=== PATIENT | male | born 1950 | race Caucasian/White ===

== ENCOUNTER 2025-03-10 14:58 | Outpatient (AMB) | payer MEDICARE, MEDICAID, SELFPAY ==
[2025-03-13 08:00] VITALS: BP 132/78; PULSE 71; RESP 16; TEMP 36.6; O2SAT 98; BMI 25.4
--- NOTE | 2025-03-13 08:00 | A.OFFPC_ITS ---
Vital Signs 03/13/25 08:00 Height 6 ft 1 in Weight 192 lb 4 oz BMI 25.4 BP 132/78 Blood Pressure Location Lt brachial Position Sitting Respiration 16 Pulse 71 Pulse Source Pulse Oximeter Temp 97.8 F Temp Source Oral Pulse Oximetry (%) 98 Oxygen Delivery Method Room Air Intake Visit Reasons: Stroke Follow up Court Liaison Required: No Accompanied by: Self / Same As Patient Allergies No Known Allergies Allergy (Verified 03/13/25 08:03) Tobacco use date assessed: 03/13/25 Fall risk assessment: No Falls in past year Last assessed Fall Risk: 03/13/25 Dental Screening Dental Screen Date: 03/13/25 Did you have a dental visit in the last 12 months?: Yes Did you have a dental problem in the last 6 months where you did not have access to dental care?: No Was dental information given to patient?: Patient has dentist HPI HPI Comments History of Present Illness Details History of Present Illness The patient is a 75-year-old male presenting with memory loss. Memory loss: - The patient has been experiencing maryanne ry loss and has not yet seen a neurologist. - He was seen at the emergency room but records are unavailable. - There is a suggestion to perform cogni tive assessments such as the Mini-Cog or MoCA. Headaches: - The patient reports severe headaches, rated as 8 out of 10 in intensity, occurring daily for the past 10 days. - The headaches are located in the front al region and occur both in the morning and at night. History of stroke: - The patient has a history of four stro kes, with the most recent occurring approximately five to six weeks ago. - He was hospitalized for a month and wa s on blood thinners during his stay. Review of Systems - Neurological: Reports memory loss and severe headaches. Denies taking medication for headaches. 10-point ROS reviewed and negative excep t as noted in HPI Past Medical History - History of four strokes, with the most recent occurring five to six weeks ago. Health Maintenance Physical Exam General: Well-appearing, in no acute distress. Vital signs: Weight 192 pounds, Height 61 inches, BP 132/78, Oxygen saturation 98%, Temperature 97.8?F, Pulse 71 bpm. HEENT: Normocephalic, atraumatic. PERRLA, EOMI. Conjunctiva clear, sclera anicteric. Oropharynx clear, mucous membranes moist. TMs intact bilaterally. Neck: Supple, no lymphadenopathy, no thyromegaly, no JVD or carotid bruits. Cardiovascular: RRR, normal S1/S2, no murmurs, rubs, or gallops. Peripheral pulses 2+ and symmetric. No edema. Respiratory: Lungs clear to auscultation bilaterally, no wheezes, rales, or rhonchi. Normal effort. Abdomen: Soft, non-tender, non-distended. Normoactive bowel sounds. No hepatosplenomegaly, no masses. MSK: Full range of motion, no joint swelling or deformity. Normal gait. Skin: Warm, dry, intact. No rashes, lesions, or pallor. Neuro: Alert and oriented x3. Cranial nerves II-XII intact. Strength 5/5 throughout. Sensation intact. Reflexes 2+ symmetric. Normal coordination and gait. Psych: Appropriate mood and affect. Normal judgment and insight. Memory loss noted, with recent headaches reported as severe, rated 8/10 in intensity, occurring in the morning and night. Plan 1. Memory Loss - Plan to conduct cognitive assessments such as the Mini-Cog or MoCA to evaluate memory function. 2. Headaches - Consider trialing medication for heada evelina relief as the patient has not taken any medication yet. 3. History Of Stroke - Review previous hospital records to un derstand the stroke history and management. Discussion Notes I discussed with the patient the importance of conducting cognitive assessments to evaluate his memory loss. We also talked about the need to review his previous hospital records to better understand his stroke history and management. Additionally, I suggested considering medication for headache relief, as he has not taken any yet. Patient was informed and verbally consented to the use of an ambient scribe for clinic note documentation during this visit. Patient Instructions - Follow up with cognitive assessments a s recommended. - Consider taking medication for headach e relief as discussed. - Ensure all previous hospital records a re reviewed for a comprehensive understanding of your stroke history. Total time spent caring for the patient today was 30 minutes. This includes time spent before the visit reviewing the chart, time spent documenting, and time spent reviewing medications, performing a medically ?necessary evaluation, counseling on diagnoses, care coordination, ordering appropriate tests, ordering appropriate medications. [facility] Family History (Updated 03/13/25 @ 08:07 by Beth Gaines MA) Father No problems noted. Mother No problems noted. Social History (Updated 03/13/25 @ 08:08 by Beth Gaines MA) Housing: Apartment Alcohol intake: current Alcohol intake frequency: does not drink Patient Tobacco Use Status: Current everyday Tobacco user service: No Current occupational status: employed Cognitive needs: No Hearing needs: No Vision needs: No Questionnaire PHQ-9 Over the last 2 weeks, how often have you been bothered by any of the following problems? 1. Little interest or pleasure in doing things: several days 2. Feeling down, depressed, or hopeless: several days 3. Trouble falling or staying asleep, or sleeping too much: not at all 4. Feeling tired or having little energy: several days 5. Poor appetite or overeating: not at all 6. Feeling bad about yourself - or that you are a failure or have let yourself or your family down: not at all 7. Trouble concentrating on things, such as reading the newspaper or watching television: nearly every day 8. Moving or speaking so slowly that other people could have noticed. Or the opposite - being so fidgety or restless that you have been moving around a lot more than usual: nearly every day 9. Thoughts that you would be better off or of hurting yourself in some way: not at all Total score: 9 Source: Developed by Drs. Kameron Olivera, Kimberli Mejia, Lex Thomas and colleagues, with an educational beau from [employer]. Thrive Questionnaire Date Thrive assessed: 03/03/25 I am a: Parent/Caregiver What is your living situation today?: I have a steady place to live Within the past 12 months, did the food you bought not last and you didn't have the money to get more?: Never true Within the past 12 months, did you worry whether your food would run out before you got money to buy more?: Often true Do you have trouble paying for medicines?: No Do you have trouble getting transportation to medical appointments?: No Do you have trouble paying your heating and electricity bill?: Yes Do you have trouble taking care of your child, family member or friend?: No Do you have trouble with day-to-day activities such as bathing, preparing meals, shopping, managing finances, etc.?: Yes Are you currently unemployed and looking for a job?: No Are you interested in more education?: No Please select the resources that you would like help with: None Currently or been in a relationship where the following occur: No concerns reported THRIVE Score: 2 AUDIT C Alcohol Use Questionnaire (AUDIT-C) 1. How often do you have a drink containing alcohol?: Never Total Score: 0 WILFREDO-7 AMB Questionnaire WILFREDO-7 Date WILFREDO - 7 assessed: 03/13/25 Feeling nervous, anxious, or on edge: 3 = Nearly every day Not being able to stop or control worryin = Nearly every day Worrying too much about different things: 0 = Not at all Trouble relaxin = Nearly every day Being so restless that it is hard to sit still: 1 = Several days Becoming easily annoyed or irritable: 1 = Several days Feeling afraid as if something awful might happen: 3 = Nearly every day Total WILFREDO-7 score (0-4 normal; 5-9 mild; 10-14 moderate; 15-21 severe): 14 Source: Developed by Drs. Kameron Olivera, Kimberli Mejia, Lex Thomas and colleagues, with an educational beau from [employer]. Physical exam (Primary Care) Vital Signs: Last Vital Signs Temp 97.8 F 03/13/25 08:00 Pulse 71 03/13/25 08:00 Resp 16 03/13/25 08:00 BP 132/78 03/13/25 08:00 Pulse Ox 98 03/13/25 08:00 Oxygen Delivery Method Room Air 03/13/25 08:00 BMI result Body Mass Index 25.4 Tobacco/Smoking Status: Tobacco use Status Tobacco use date assessed 03/13/25 03/13/25 08:09 Patient Tobacco Use Status Current everyday Tobacco 03/13/25 08:09 PHQ-9: PHQ-9 Score PHQ-9: Total score 9 03/13/25 08:09 Thrive Assessment: Date of Thrive Assessment Date Thrive assessed 03/03/25 03/13/25 08:09 Currently or been in a relationship where the following occur: No concerns reported Coding Level of Care Code New Pt Level 4 (77431) Diagnoses Chronic nonintractable headache, unspecified headache type R51.9; G89.29 Headache type: unspecified Intractability: not intractable Memory loss due to medical condition R41.3 History of stroke Z86.73 Elevated blood pressure reading R03.0 Assessment & Plan Assessment & Plan (1) Chronic headache: Code(s): R51.9 - Headache, unspecified; G89.29 - Other chronic pain Qualifiers: Headache type: unspecified Intractability: not intractable Qualified Code(s): R51.9 - Headache, unspecified; G89.29 - Other chronic pain (2) Memory loss due to medical condition: Code(s): R41.3 - Other amnesia (3) History of stroke: Code(s): Z86.73 - Personal history of transient ischemic attack (TIA), and cerebral infarction without residual deficits (4) Elevated blood pressure reading: Code(s): R03.0 - Elevated blood-pressure reading, without diagnosis of hypertension Plan Medications: New atorvastatin 80 mg PO DAILY 90 tabs 0RF olanzapine 5 mg PO BEDTIME 90 tabs 0RF aspirin 81 mg PO DAILY 90 tabs 0RF
== END 2025-03-10 15:36 | disposition home or self-care (01) ==
PROVIDERS: PCP Student in an Organized Health Care Education/Training Program; Visit Provider Student in an Organized Health Care Education/Training Program
DX: R51.9 Headache, unspecified (principal); G89.29 Other chronic pain; R41.3 Other amnesia; Z86.73 Personal history of transient ischemic attack (TIA), and cerebral infarction without residual deficits; R03.0 Elevated blood-pressure reading, without diagnosis of hypertension

== ENCOUNTER → 2025-03-10 14:58 | Outpatient (BNVA) | payer MEDICARE, MEDICAID, SELFPAY | PROVIDERS: PCP Student in an Organized Health Care Education/Training Program; Visit Provider Student in an Organized Health Care Education/Training Program | DX: R41.3 Other amnesia (principal); R51.9 Headache, unspecified; G89.29 Other chronic pain; R03.0 Elevated blood-pressure reading, without diagnosis of hypertension; Z86.73 Personal history of transient ischemic attack (TIA), and cerebral infarction without residual deficits | CPT/HCPCS: 99202 ==

== ENCOUNTER 2025-03-21 13:31 | Outpatient (REF) | payer MEDICARE, MEDICAID, SELFPAY ==
[2025-03-21 18:11] LABS: MANUAL DIFF FLAG NO
[2025-03-21 18:28] LABS: Appearance Urine Clear; Glucose Urine UA Negative (Negative); PH 5.5 (5.0-9.0); Specific Gravity - Urine 1.015 (1.005-1.025); UMIC TRIGGER UACC YES
[2025-03-21 18:34] LABS: UACC Culture Trigger YES
[2025-03-21 18:43] LABS: Alanine Aminotransferase 27 U/L (0-40); Albumin Level 3.9 g/dL (3.5-5.0); Alkaline Phosphatase 101 U/L (39-117); Anion Gap 13 (12-20); Aspartate Amino Transferase 30 U/L (5-37); Blood Urea Nitrogen 21 mg/dL (9-16); Calcium 9.8 mg/dL (8.4-10.2); Carbon Dioxide 26 mmol/L (22-29); Chloride 109 mmol/L (96-108); Cholesterol 178 mg/dL (<200); Estimated Glomerular Filt Rate 54; HDL Cholesterol 51 mg/dL (>40); Magnesium 2.2 mg/dL (1.6-2.6); Potassium 4.4 mmol/L (3.3-5.1); Sodium 144 mmol/L (135-145); Total Protein 7.2 g/dL (6.5-8.0); Triglycerides 91 mg/dL (<150)
[2025-03-21 19:05] LABS: Folate 8.8 ng/mL (> or = 4.0); Vitamin B12 537 pg/mL (200-900)
[2025-03-21 20:13] LABS: Hematocrit 43.3 % (42.0-52.0); Hemoglobin 14.5 g/dl (14.0-18.0); Imm Gran Abs Auto 0.02 X10*3/uL (0.00-0.03); Imm Gran Pct Auto 0.3 % (0.0-0.4); Lymphocytes Absolute Auto 2.7 X10*3/uL (1.2-4.9); Mean Corpuscular HGB Conc 33.5 g/dl (31.0-36.0); Mean Corpuscular Hemoglobin 32.3 pg (27.0-33.0); Mean Corpuscular Volume 96.4 fL (80.0-98.0); NRBC Abs Auto 0.000 X10*3/uL (0.0-0.012); NRBC Pct Auto 0.0 /100WBC (0.0-0.2); Platelet Count 179 X10*3/uL (160-400); Red Blood Count 4.49 X10*6/uL (4.60-5.80); White Blood Count 7.4 X10*3/uL (4.8-10.8)
[2025-03-22 03:12] LABS: Syphilis Screen Nonreactive (Nonreactive)
[2025-03-22 03:28] LABS: HBS Num1 1.89 mIU/mL (0-7.99); HBsAGNum1 0.40 S/CO (0.00-0.99); HIV Num 1 0.05 S/CO (0.00-0.99); Hepatitis B Surface Antigen Negative (Negative); ~HepC Num1 0.17 S/CO (0.00-0.79); ~Hepatitis B Surface Antibody NONREACTIVE (Nonreactive); ~Hepatitis C Antibody Nonreactive (Nonreactive)
[2025-03-25 15:29] LABS: VITAMIN D (1,25 OH) D3 16 pg/mL; Vit D (1,25-Dihydroxy) Total 27 pg/mL (18-72); Vitamin D (1,25 OH) D2 11 pg/mL
== END 2025-03-21 13:32 | disposition home or self-care (01) ==
LOC: HO.HKASLDS 13:31
PROVIDERS: PCP Student in an Organized Health Care Education/Training Program; Visit Provider Student in an Organized Health Care Education/Training Program
DX: Z11.4 Encounter for screening for human immunodeficiency virus [HIV] (principal); Z13.1 Encounter for screening for diabetes mellitus; Z13.6 Encounter for screening for cardiovascular disorders; Z13.21 Encounter for screening for nutritional disorder; Z13.29 Encounter for screening for other suspected endocrine disorder
CPT/HCPCS: 36415; 80053; 80061; 81001; 82607; 82652; 82746; 83036; 83735; 84443; 85025; 86706; 86780; 86803; 87086; 87340; 87389

== ENCOUNTER 2025-03-24 14:06 | Outpatient (AMB) | payer MEDICARE, MEDICAID, SELFPAY ==
--- NOTE | 2025-03-24 14:14 | A.OFFPC_ITS ---
Vital Signs 03/24/25 14:15 Height 6 ft 1 in Weight 197 lb BMI 26.0 BP 152/86 H Blood Pressure Location Lt brachial Position Sitting Respiration 16 Pulse 58 Pulse Source Pulse Oximeter Pulse Oximetry (%) 99 Oxygen Delivery Method Room Air Intake Visit Reasons: 2 wk f/u Motor Operator Required: No Accompanied by: Self / Same As Patient Allergies No Known Allergies Allergy (Verified 03/24/25 14:16) Tobacco use date assessed: 03/24/25 Fall risk assessment: No Falls in past year Last assessed Fall Risk: 03/13/25 Dental Screening Dental Screen Date: 03/24/25 Did you have a dental visit in the last 12 months?: Yes Did you have a dental problem in the last 6 months where you did not have access to dental care?: No Was dental information given to patient?: Patient has dentist HPI HPI Comments History of Present Illness Details Consent Patient was informed and verbally consented to the use of an ambient scribe for clinic note documentation during this visit. History of Present Illness The patient is a 75-year-old male presenting with memory loss and severe headaches. Memory Loss: Two months post-stroke, the patient experiences memory loss contributing to daily functional impairment. The initial stroke necessitated a month-long hospitalization and rehabilitation due to the cognitive decline. Imaging has illustrated underlying chronic small vessel ischemic changes and brain atrophy, linked to both acute and chronic stroke events, impairing the patient's memory faculties. Recurrent Headaches: The patient reports severe headaches, particularly of frontal origin, presenting daily over the last ten days, rating an 8/10 in severity. Previous imaging and records have linked these neurological symptoms potentially to post-stroke sequelae. The presence of daily debilitating headaches necessitates further evaluation. Surgical History: - No prior surgeries reported. Medications: - Aspirin 81 mg daily (Preventive for ca rdiovascular events) - Atorvastatin 80 mg daily (Hyperlipidem ia management) - Cyanocobalamin (Vitamin B12 supplement ation) - Gabapentin, taken as needed for pain r elief. Social History: - Consistent history of tobacco use. - Documented history of cocaine use diso rder. - Lives with family; previously noted ho melessness. Family History: - No significant family medical history was discussed. Diagnostic Results: - Labs: Positive urine toxicology for co jorge a. - Imaging: CT scans showing chronic smal l vessel ischemic changes and age- related brain atrophy; MRI revealing acute and chronic infarcts in various brain regions. Review of Systems - Neurological: Reports memory loss and headaches rated 8/10 in severity, occurring daily. 10-point ROS reviewed and negative excep t as noted in HPI Past Medical History - Stroke (most recent two months ago) - Cocaine use disorder - Chronic Obstructive Pulmonary Disease (COPD) - Depression - Anxiety - Chronic renal insufficiency - Vitamin B12 deficiency - Vitamin D deficiency - Suicidal ideations - Altered mental status - Small vessel ischemic changes - Age-related brain atrophy - Attention Deficit Hyperactivity Disord er (ADHD) Health Maintenance - Emphasize the cessation of tobacco and cocaine use. - Continue monitoring and managing B12 a nd vitamin D intake. Physical Exam General: Well-appearing, in no acute distress. Vital signs: Within normal limits. HEENT: Normocephalic, atraumatic. PERRLA, EOMI. Conjunctiva clear, sclera anicteric. Oropharynx clear, mucous membranes moist. TMs intact bilaterally. Neck: Supple, no lymphadenopathy, no thyromegaly, no JVD or carotid bruits. Cardiovascular: RRR, normal S1/S2, no murmurs, rubs, or gallops. Peripheral pulses 2+ and symmetric. No edema. Respiratory: Lungs clear to auscultation bilaterally, no wheezes, rales, or rhonchi. Normal effort. Abdomen: Soft, non-tender, non-distended. Normoactive bowel sounds. No hepatosplenomegaly, no masses. MSK: Full range of motion, no joint swelling or deformity. Normal gait. Skin: Warm, dry, intact. No rashes, lesions, or pallor. Neuro: Alert and oriented x3. Cranial nerves II-XII intact. Strength 5/5 throughout. Sensation intact. Reflexes 2+ symmetric. Normal coordination and gait. Psych: Appropriate mood and affect. Normal judgment and insight. 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 The patient also experiences memory issues and debilitating headaches, likely related to acute and chronic strokes, chronic ischemic changes, and brain atrophy. Plan 1. Memory Loss - Refer to neurology for comprehensive e valuation. - Continue with current medication manag ement. - Schedule MRI of the head to evaluate f or any acute changes. 2. Cocaine Use Disorder - Psychiatric consultation recommended f or management of substance use disorder. - Encourage participation in addiction t reatment programs. 3. Depression - Recommend psychiatric evaluation to ad dress depressive symptoms. - Consider adjustment of medication missy men upon psychiatric input. Discussion Notes I reviewed with the patient and family the implications of recent neurological symptoms, reiterating the necessity for a neurology referral to help delineate the cause of memory loss and assess any additional stroke sequelae through imaging studies. We stressed the importance of addressing both the substance use disorder and depression through psychiatric interventions, detailing outpatient support and medication management as viable options to ensure comprehensive care of his mental health. Patient Instructions - Follow up with neurology for a memory loss evaluation. - Schedule a psychiatric consultation fo r substance use and depression management. - Monitor daily headaches; seek care if symptoms worsen or change. Medical Decision Making Given the complexity of the patient?s presentation, memory loss is suspected to primarily stem from prior stroke-related injury corroborated by histories of ischemic insults and neuroimaging findings. Neurological referral is prioritized for targeted management of cognitive symptoms. The substance use disorder coupled with mood symptoms significantly complicates the clinical picture, necessitating coordinated psychiatric interventions. We considered potential neurological causes for his headaches and the chronicity of underlying ischemic disease; the focused treatment at present is the strategic use of medication while planning for neurology and psychiatry referrals to allow for comprehensive management. Total time spent caring for the patient today was 30 minutes. This includes time spent before the visit reviewing the chart, time spent documenting, and time spent reviewing laboratory results, diagnostic imaging, medications, performing a medically necessary evaluation, counseling on diagnoses, care coordination, ordering appropriate tests, ordering appropriate medications, review of tests performed by other providers, reporting test results with the patient. [facility] Medical History (Updated 03/24/25 @ 14:21 by Reji Kwan MD) Depression Cocaine use disorder Alcoholism in remission Shortness of breath Obstructive sleep apnea Insomnia ADHD (attention deficit hyperactivity disorder) Acute depression COPD (chronic obstructive pulmonary disease) Anxiety Seizures Family History Father No problems noted. Mother No problems noted. Social History Housing: Apartment Alcohol intake: current Alcohol intake frequency: does not drink Patient Tobacco Use Status: Current everyday Tobacco user service: No Current occupational status: employed Cognitive needs: No Hearing needs: No Vision needs: No Questionnaire Thrive Questionnaire Date Thrive assessed: 03/24/25 I am a: Parent/Caregiver What is your living situation today?: I have a steady place to live Within the past 12 months, did the food you bought not last and you didn't have the money to get more?: Never true Within the past 12 months, did you worry whether your food would run out before you got money to buy more?: Often true Do you have trouble paying for medicines?: No Do you have trouble getting transportation to medical appointments?: No Do you have trouble paying your heating and electricity bill?: Yes Do you have trouble taking care of your child, family member or friend?: No Do you have trouble with day-to-day activities such as bathing, preparing meals, shopping, managing finances, etc.?: Yes Are you currently unemployed and looking for a job?: No Are you interested in more education?: No Please select the resources that you would like help with: None Currently or been in a relationship where the following occur: No concerns reported THRIVE Score: 2 AUDIT C Alcohol Use Questionnaire (AUDIT-C) 1. How often do you have a drink containing alcohol?: Never 3. How often do you have six or more drinks on one occasion?: Never Total Score: 0 WILFREDO-7 AMB Questionnaire WILFREDO-7 Date WILFREDO - 7 assessed: 03/24/25 Source: Developed by Drs. Kameron Olivera, Kimberli Mejia, Lex Thomas and colleagues, with an educational beau from [employer]. Physical exam (Primary Care) Vital Signs: Last Vital Signs Pulse 58 03/24/25 14:15 Resp 16 03/24/25 14:15 BP 152/86 H 03/24/25 14:15 Pulse Ox 99 03/24/25 14:15 Oxygen Delivery Method Room Air 03/24/25 14:15 BMI result Body Mass Index 26.0 Tobacco/Smoking Status: Tobacco use Status Tobacco use date assessed 03/24/25 03/24/25 14:18 Patient Tobacco Use Status Current everyday Tobacco 03/24/25 14:18 Thrive Assessment: Date of Thrive Assessment Date Thrive assessed 03/24/25 03/24/25 14:18 Currently or been in a relationship where the following occur: No concerns reported Coding Level of Care Code Est Pt Level 4 (45404) Diagnoses Cocaine use disorder F14.10 Depression F32.A Seizures R56.9 ADHD F90.9 History of ischemic stroke Z86.73 COPD (chronic obstructive pulmonary disease) J44.9 Chronic renal insufficiency N28.9 Vitamin B12 deficiency E53.8 Vitamin D2 deficiency E55.9 Headache R51.9 History of homeless Z78.9 Assessment & Plan Assessment & Plan (1) Cocaine use disorder: Code(s): F14.10 - Cocaine abuse, uncomplicated Category: Medical (2) Depression: Code(s): F32.A - Depression, unspecified Category: Medical (3) Seizures: Code(s): R56.9 - Unspecified convulsions Category: Medical (4) ADHD: Code(s): F90.9 - Attention-deficit hyperactivity disorder, unspecified type (5) History of ischemic stroke: Code(s): Z86.73 - Personal history of transient ischemic attack (TIA), and cerebral infarction without residual deficits (6) COPD (chronic obstructive pulmonary disease): Code(s): J44.9 - Chronic obstructive pulmonary disease, unspecified (7) Chronic renal insufficiency: Code(s): N28.9 - Disorder of kidney and ureter, unspecified (8) Vitamin B12 deficiency: Code(s): E53.8 - Deficiency of other specified B group vitamins (9) Vitamin D2 deficiency: Code(s): E55.9 - Vitamin D deficiency, unspecified (10) Headache: Code(s): R51.9 - Headache, unspecified (11) History of homeless: Code(s): Z78.9 - Other specified health status Plan
[2025-03-24 14:15] VITALS: BP 152/86; PULSE 58; RESP 16; O2SAT 99; BMI 26.0
== END 2025-03-24 15:07 | disposition home or self-care (01) ==
LOC: HO.HMCFMS 14:06
PROVIDERS: PCP Student in an Organized Health Care Education/Training Program; Visit Provider Student in an Organized Health Care Education/Training Program
DX: F14.10 Cocaine abuse, uncomplicated (principal); F32.A Depression, unspecified; R56.9 Unspecified convulsions; F90.9 Attention-deficit hyperactivity disorder, unspecified type; Z86.73 Personal history of transient ischemic attack (TIA), and cerebral infarction without residual deficits; J44.9 Chronic obstructive pulmonary disease, unspecified; N28.9 Disorder of kidney and ureter, unspecified; E53.8 Deficiency of other specified B group vitamins; E55.9 Vitamin D deficiency, unspecified; R51.9 Headache, unspecified; Z78.9 Other specified health status

== ENCOUNTER → 2025-03-24 14:06 | Outpatient (BNVA) | payer MEDICARE, OTHER, SELFPAY | PROVIDERS: PCP Student in an Organized Health Care Education/Training Program; Visit Provider Student in an Organized Health Care Education/Training Program | DX: F14.10 Cocaine abuse, uncomplicated (principal); F32.A Depression, unspecified; R56.9 Unspecified convulsions; F90.9 Attention-deficit hyperactivity disorder, unspecified type; J44.9 Chronic obstructive pulmonary disease, unspecified; N28.9 Disorder of kidney and ureter, unspecified; E53.8 Deficiency of other specified B group vitamins; E55.9 Vitamin D deficiency, unspecified; R51.9 Headache, unspecified; Z86.73 Personal history of transient ischemic attack (TIA), and cerebral infarction without residual deficits; Z78.9 Other specified health status; Z79.82 Long term (current) use of aspirin; Z79.899 Other long term (current) drug therapy | CPT/HCPCS: 99212 ==

== ENCOUNTER 2025-04-12 12:46 | Outpatient (AMB) | payer MEDICARE, MEDICAID, SELFPAY ==
[2025-04-12 13:04] VITALS: BP 116/70; PULSE 60; O2SAT 97; BMI 26.4
--- NOTE | 2025-04-12 13:04 | A.OFFVIS_ITS ---
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 He was hospitalized for approximately 1 month and was placed on blood thinners during his stay. He also has a history of COPD, depression, cocaine use in the past, hyperlipidemia, elevated blood pressures, and seizures. He presents to the clinic today for a headache evaluation though it is mentioned in primary care office notes that he has been awaiting neurology evaluation for memory loss. He tells me that he began having headaches about 2 months ago. He was never someone to have headache prior to this. He reports that his headaches have been severe and they occur most often during the night but can arise during the day but generally last for the greater part of a day. He does have breaks from his headahces but they are more often there than not. They are described as a stabbing sensation behind the eyes, temporal, and forehead. He does not have any associated nausea, light sensitivity, and sound sensitivity, dizziness, or autonomic features. His headaches cause him to want to remain still. He is not sure if any particular position makes his headaches worse or better. He denies vision changes or tinnitus. He also mentions that over the course of the last few weeks he has experienced some difficulty with balance. Memory: Pt himself reports that there are no changes to his memory. He does note that he has to focus more. According to his niece, his memory and cognitive functioning are gone . She estimates that for at least the last 6 month he has had major changes in both his physical and cognitive functioning. Last fall around Thanksgiving he seemed okay and relatively at his baseline from what she can remember. He denies loss of consciousness episodes. His niece notices that he may Freeze for a couple minutes with a blank stare. He does not experience any involuntary movements, lip smacking, or tongue biting. Background/social information: Sleep: Sleeps approximately 12 hours per night and he does not have any difficulty falling asleep. He denies snoring or gasping arousals. Caffeine intake: 3 cups of caffeinated beverages per day Alcohol intake: None Tobacco use, yes-10 cigarettes daily Other illicit drug use: No [facility] Medical History (Updated 04/12/25 @ 13:58 by Paulette Law CNP) Chronic headache Depression Cocaine use disorder Alcoholism in remission Shortness of breath Obstructive sleep apnea Insomnia ADHD (attention deficit hyperactivity disorder) Acute depression COPD (chronic obstructive pulmonary disease) Anxiety Seizures Family History Father No problems noted. Mother No problems noted. Social History Housing: Apartment Alcohol intake: current Alcohol intake frequency: does not drink Patient Tobacco Use Status: Current everyday Tobacco user service: No Current occupational status: employed Cognitive needs: No Hearing needs: No Vision needs: No Review of Systems Const All systems reviewed & are unremarkable except as noted in HPI and below Physical Exam Exam Exam: MMSE: 20/30 Vital Signs: Last Vital Signs Pulse 60 04/12/25 13:04 BP 116/70 04/12/25 13:04 Pulse Ox 97 04/12/25 13:04 Oxygen Delivery Method Room Air 04/12/25 13:04 BMI result Body Mass Index 26.4 Const General: cooperative, healthy appearing, comfortable and no acute distress Nutritional Appearance: well nourished Limitations: no limitations HEENT Head: Yes normal to inspection and Yes normocephalic Eyes General: appearance normal, both eyes and all related structures Visual Manzo: normal visual manzo by confrontation Alignment and Position: alignment normal Periorbital: periorbital findings normal Eyelids: Yes eyelids normal Conjunctivae: conjunctivae normal Sclerae: sclerae normal Direct Ophthalmoscopy: normal light reflex, no papilledema and fundi normal bilaterally Neuro General: tone normal Cranial nerves: Yes CN's II-XII intact bilaterally and Yes Facial sensation intact/muscles of mastication intact Cognition (Neuro): abnormal cognition Gait exam (Neuro): Staggering gait present Motor exam (neuro): 5/5 motor strength present throughout and no tremor noted Sensory Exam: double simultaneous stimulation for sensation normal Deep tendon reflexes (DTR's): Right triceps reflex intensity grade: 3+, Left triceps reflex intensity grade: 3+, Rt Biceps (C5, C6): 3+, Left biceps reflex intensity grade: 3+, Right brachioradialis reflex intensity grade: 3+, Left brachioradialis reflex intensity grade: 3+, Right patellar reflex intensity grade: 3+, Left patellar reflex intensity grade: 3+, Right ankle reflex intensity grade: 3+ and Left ankle reflex intensity grade: 3+ Plantar Reflex Responses: downgoing: bilateral Coordination: [id number] test normal Romberg Test: Negative Pupils: Normal pupillary reactivity/response: bilateral Assessment & Plan Assessment & Plan (1) Cognitive decline: Code(s): R41.89 - Other symptoms and signs involving cognitive functions and awareness Category: Medical (2) Hyperreflexia: Code(s): R29.2 - Abnormal reflex Category: Medical (3) New onset headache: Code(s): R51.9 - Headache, unspecified Category: Medical (4) Encephalopathy: Code(s): G93.40 - Encephalopathy, unspecified Category: Medical Plan Sebastian is a 75-year-old male patient with a past medical history of several strokes most recently occurring in the last couple of months. He was hospitalized for approximately 1 month and was placed on blood thinners during his stay. He also has a history of COPD, depression, cocaine use in the past, hyperlipidemia, elevated blood pressures, and seizures. He presents to the clinic today for a headache evaluation though it is mentioned in primary care office notes that he has been awaiting neurology evaluation for memory loss. RPR, HIV, TSH, and B12 all within normal limits. He had a recent MRI scan at a hospital in [place] and there was hospitalization there as well. I will obtain the report and disc for the MRI. Pending results, we will likely plan for a lumbar puncture to rule out infectious or autoimmune encephalitis in the setting of new onset headache and cognitive changes. In meantime, we will obtain a couple of additional labs including a Lyme antibody test and a sed rate. We will also perform an EEG to rule out seizure activity or identify areas of slowing. This case was discussed with Dr. Hicks who also evaluated the patient at [facility]. A total of 65 minutes was spent in review of previous records, detailed history taking, physical exam, review of case with attending physician, and review of the plan and ordered testing with the patient and his niece. -Labs: lyme ab test and sed rate -Obtain MRI from [facility] -Pending MRI result review will likely plan for a lumbar puncture Orders: Orders Erythrocyte Sedimentation Rate 04/12/25 R29.2 - Abnormal reflex, R41.89 - Other symptoms and signs involving cognitive functions and awareness, R51.9 - Headache, unspecified EEG Routine 04/12/25 G93.40 - Encephalopathy, unspecified, R29.2 - Abnormal reflex, R41.89 - Other symptoms and signs involving cognitive functions and awareness, R51.9 - Headache, unspecified Lyme IgG/IgM w/reflex to WB 04/12/25 R29.2 - Abnormal reflex, R41.89 - Other symptoms and signs involving cognitive functions and awareness, R51.9 - Headache, unspecified Coding Level of Care Code New Pt Level 5 (34553) Diagnoses Cognitive decline R41.89 Hyperreflexia R29.2 New onset headache R51.9 Encephalopathy G93.40
== END 2025-04-12 14:04 | disposition home or self-care (01) ==
LOC: HO.HSM 12:47
PROVIDERS: PCP Student in an Organized Health Care Education/Training Program; Visit Provider Nurse Practitioner
DX: R41.89 Other symptoms and signs involving cognitive functions and awareness (principal); R29.2 Abnormal reflex; R51.9 Headache, unspecified; G93.40 Encephalopathy, unspecified
CPT/HCPCS: 99205

== ENCOUNTER 2025-04-12 12:46 | Outpatient (REF) | payer MEDICARE, OTHER, SELFPAY ==
[2025-04-13 06:03] LABS: Lyme Abs Screen <0.90 index
== END 2025-04-12 12:47 | disposition home or self-care (01) ==
LOC: HO.LAB 12:46
PROVIDERS: PCP Student in an Organized Health Care Education/Training Program; Visit Provider Nurse Practitioner
DX: R41.89 Other symptoms and signs involving cognitive functions and awareness (principal); R29.2 Abnormal reflex; R51.9 Headache, unspecified; G93.40 Encephalopathy, unspecified; Z01.84 Encounter for antibody response examination
CPT/HCPCS: 36415; 85652; 86617; 86618; 99202